=== PATIENT | male | born 1990 | race Caucasian/White ===

== ENCOUNTER 2021-02-27 00:37 | Emergency (ER) | payer OTHER ==
[~2021-02-27] VITALS: Ht 167.6 cm; Wt 95.3 kg
[2021-02-27 01:03] VITALS: BP_SYST 150
--- NOTE | 2021-02-27 01:06 | NUR ---
TO LOBBY A/W BED AMBULATORY
--- NOTE | 2021-02-27 02:30 | NUR ---
RECEIVED IN BED 5 WITH C/O SORETHROAT FOR 8 DAYS, FATIGUE
[2021-02-27] MEDS ORDERED: AMOX500C25 PO (02:45)
[2021-02-27] MEDS ORDERED: DEXAMETHASONE 10 MG/ML VIAL PO ONE (02:50)
[2021-02-27 03:06] VITALS: BP_SYST 150
== END 2021-02-27 03:06 | disposition home or self-care (01) ==
LOC: MED 00:37
DX: H66.92 Otitis media, unspecified, left ear (principal); Z20.822 Contact with and (suspected) exposure to COVID-19; J02.9 Acute pharyngitis, unspecified; Z79.899 Other long term (current) drug therapy
CPT/HCPCS: 87081; 99283; J1100; U0003